=== PATIENT | female | born 1960 | race Caucasian/White ===

== ENCOUNTER 2017-04-16 19:39 | Emergency (ER) | payer OTHER ==
[~2017-04-16] VITALS: Ht 157.5 cm; Wt 86.3 kg
[~2017-04-16 19:39] MED LIST: CLAR10T; ESTR1TAB22; ZOC20
[2017-04-16 19:45] VITALS: BP 179/116; PULSE 70; RESP 16; O2SAT 99
[2017-04-16 20:56] LABS: BASOPHILS % (AUTO) 0.8 % (0-3); EOSINOPHILS % (AUTO) 4.3 % (0-5); MONOCYTES % (AUTO) 9.5 % (4-12); Mean Corpuscular Hemoglobin 29.6 pg (27.0-35.0); Mean Corpuscular Volume 88.1 fL (81-100); NEUTROPHILS % (AUTO) 48.7 % (40-74); Platelet Count 269 bil/L (150-400)
[2017-04-16 21:08] VITALS: BP 141/91; PULSE 66; RESP 20; O2SAT 99
[2017-04-16 21:18] LABS: TROPONIN T 0.01 ug/L (0.0-0.011)
--- NOTE | 2017-04-16 21:21 | ED.REPORT ---
HPI-General Illness Date of Service Apr 16, 2017 ED Provider: Ananda Lema MD Pt is a healthy 56 y/o female presenting to the ED c/o bilateral tingling sensation about the palmar aspect of every finger which has been occurring for many months. She denies any actual numbness, weight loss, any other symptoms. These symptoms seem to occur mostly when she walks. She has had carpal tunnel surgery bilaterally. The patient admits to consuming about 1-2 shots of vodka each day after work and she has not ceased this recently. Her mother and grandmother both have diabetes but she has no history of any chronic medical problems including diabetes and peripheral neuropathy. One time today her left foot tingled but otherwise these sensations seem to be located to just her fingers. She decided to be seen in the ED today because she has a family history of cardiac disease and she was worried this may be a cardiac problem. Nursing Notes Stated Complaint: TINGLING IN BOTH HANDS/SENT FROM URGENT CARE Chief Complaint: General Complaint Nursing Notes Reviewed: Yes Allergies: Coded Allergies: No Known Allergies (Unverified , 04/16/17) Miscellaneous Medications Estradiol/Noreth-Expunged Drug, Do Not Renew! (Activella-Expunged Drug, Do Not Renew!!) 1 Tab Tablet Loratadine-Expunged Drug, Do Not Renew! (Loratadine-Expunged Drug, Do Not Renew! ) 10 Mg Tablet Simvastatin-Expunged Drug, Choose New Med! (Simvastatin-Expunged Drug, Choose New Med!) 20 Mg Tablet General Time Seen by MD: 21:19 Chief Complaint Other (finger tingling) Hx Obtained From: Patient Arrived By: Walk-in Sudden in Onset?: No Onset Occurred: More than a week ago... (3 months) Symptom Duration: Since onset Severity: Current: No pain currently Severity: Maximum: No pain Recent Healthcare: No recent hospitalization Similar Sx Previous: No Past Medical History Past Medical History Denies Past Surgical History Carpal tunnel bilat Family History Diabetes Cardiac disease Smoking History Unknown if Ever Smoker Social History Alcohol Use: 1-3 per day Ambulatory Status Independent Review of Systems +tingling sensation Full Review of Systems Constitutional: Denies: Chills, Fever Respiratory: Denies: Non-productive cough, Shortness of breath Cardiovascular: Denies: Chest pain, Dyspnea on exertion GI: Denies: Abdominal pain, Nausea, Vomiting Musculoskeletal: Denies: Back pain, Neck pain Neurologic: Denies: Abnormal movement, Bladder dysfunction, Bowel dysfunction, Change LOC, Confusion, Dizziness, Focal weakness, Headache, Lightheaded, Numbness, Problem walking, Seizure, Shaking, Slurred speech, Spinning sensation , Syncope, Unable to speak, Vision change, Weakness Physical Exam Vital Signs Vital Signs Date Time Temp Pulse Resp B/P Pulse Ox O2 Delivery O2 Flow Rate FiO2 04/16/17 22:08 64 16 163/94 97 Room Air 04/16/17 21:51 66 16 144/94 97 Room Air 04/16/17 21:08 66 20 141/91 99 Room Air 04/16/17 19:45 36.5 70 16 179/116 99 Initial VS: Reviewed, Vital signs abnormal Head / Eyes: Atraumatic, Normocephalic, PERRL ENT: Mucous membranes moist, Conjunctiva normal, No scleral icterus Neck: Supple, Full range of motion Respiratory: Breath sounds normal, Clear to auscultation, No respiratory distress Cardiovascular: Regular rate & rhythm, Heart sounds normal, Intact distal pulses Skin: Warm, Dry, No cyanosis Psychiatric: Mood/affect normal, Behavior normal, Normal thought content General/Constitutional: Awake, Alert, No acute distress, Well appearing, Cooperative, Not toxic appearing Behavior: Positive: Anxious Appearance / Presentation: Positive: Obese Abdomen: Atraumatic, Soft, Non-tender, No guarding, No rebound, No distention, No palpable mass Organomegaly / Mass / Hernia: Negative: Hepatomegaly Upper Extremities Upper Extremity / MS: Atraumatic, Inspection NL, Full range of motion, No swelling, Non-tender, No snuffbox tenderness, No erythema, No deformity, Neurologic intact, Vascular intact, No ligamentous injury, Tendon function NL, No compartment syndrome, No circumferential injury, No clubbing/cyanosis, No edema Wrist / Hand: Atraumatic, Inspection NL, Full range of motion, No swelling, No erythema, Non-tender, No snuffbox tenderness, No deformity, Neurologic intact, Vascular intact, No ligamentous injury, Tendon function NL, No compartment syndrome, No circumferential injury, No clubbing/cyanosis, No edema Well healed carpal tunnel scars bilaterally Interpretation & Diagnostics Lab Results Interpretation Result Diagram: 04/16/17204404/16/172044 Test 04/16/17 20:45 White Blood Count 7.4th/mm3 (3.8-10.1) Red Blood Count 4.97mil/mm3 (3.90-5.20) Hemoglobin 14.7g/dL (12.0-15.6) Hematocrit 43.8% (35.0-46.0) Mean Corpuscular Volume 88.1fL (81-100) Mean Corpuscular Hemoglobin 29.6pg (27.0-35.0) Mean Corpuscular Hemoglobin Concent 33.6% (32.0-37.0) Red Cell Distribution Width 13.8% (12.3-15.4) Platelet Count 269bil/L (150-400) Neutrophils (%) (Auto) 48.7% (40-74) Lymphocytes (%) (Auto) 36.4% (14-46) Monocytes (%) (Auto) 9.5% (4-12) Eosinophils (%) (Auto) 4.3% (0-5) Basophils (%) (Auto) 0.8% (0-3) Sodium Level 139mEq/L (134-144) Potassium Level 4.2mEq/L (3.5-5.2) Chloride Level 102mEq/L (97-108) Carbon Dioxide Level 23mmol/L (18-29) Blood Urea Nitrogen 13mg/dL (6-24) Creatinine 0.77mg/dL (0.57-1.00) Estimat Glomerular Filtration Rate 111mL/min (>59) Glucose Level 95mg/dL (60-99) Calcium Level 9.7mg/dL (8.5-10.1) Magnesium Level 2.3mg/dL (1.6-2.6) Total Bilirubin 0.3mg/dL (0.0-1.2) Aspartate Amino Transf (AST/SGOT) 23U/L (0-50) Alanine Aminotransferase (ALT/SGPT) 33U/L (0-32) Alkaline Phosphatase 73U/L (25-150) Troponin T 0.010ug/L (0.0-0.011) Total Protein 7.8g/dL (6.4-8.4) Albumin 4.5g/dL (3.4-5.0) Hold Carballo Top Tube Received (Received) Lab Results Interpretation: Mild transaminitis ECG Interpretation Time: 21:30 Interpreted by: ED physician Normal ECG Interpretation: Normal ECG w/ rate of... (63), Normal rate, Normal sinus rhythm, No acute ischemic changes, Normal QRS, Normal axis, Normal intervals, Adequate tracing Re-Eval/Medical Decision Med Decision/Clinical Course 56-year-old female who presents with several weeks of bilateral intermittent tingling of the hands and occasionally of the foot. She drinks vodka on a daily basis for the past 4 years. She has no sobriety during that timeframe. She is found to have mild elevation of one of her liver enzymes without any palpable liver tenderness or enlargement of the labs are normal. EKG is normal. Troponin is negative. I do not suspect stroke or cardiac disease. She does have a history of bilateral carpal tunnel surgeries but this does not appear to be due to recurrent carpal tunnel syndrome. She feels she will have no trouble stopping drinking and expresses intent to do so. She will follow up with her primary doctor if she experiences withdrawal symptoms or has trouble stopping. Time of Eval: 21:55 Re-Evaluation/Progress Note: Pt rechecked. Discussed normal lab results. Discussed alcohol overuse and possibility of withdrawal. F/U instructions and RTER warnings given. All questions addressed. Counseled Regarding: Diagnosis, Lab results, Need for follow-up, When/why to return to ED Discharge & Departure Primary Impression: Peripheral neuropathy Peripheral neuropathy type: idiopathic neuropathy, unspecified Qualified Code : G60.9 - Hereditary and idiopathic neuropathy, unspecified Additional Impression: Alcohol abuse Disposition: Home Discharge Condition All VS Reviewed: Yes Condition: Stable Patient Instructions: Alcohol Dependence (ED), Peripheral Neuropathy (ED) Additional Instructions: You have peripheral neuropathy, likely caused by daily alcohol intake. I do not suspect a problem with your heart. You need to stop drinking. If you have problems with withdrawal or are unable to stop, talk to your regular doctor about assistance. Call me at [phone] between the hours of 9 PM and 6 AM for the next couple nights if you have any questions or concerns. Referrals: Lisa Gordon MD (PCP) Scribe Attestation Portions of this note were transcribed by Miguel Ángel Shipman. I, Dr. Lema personally performed the history, physical exam and medical decision-making; I reviewed and confirmed the accuracy of the information in the transcribed note. Signed by Kyle Guzmán, 04/16/172199 copies to: Lisa Gordon MD, Ananda Castellanos MD Apr 16, 2017 21:20 MIGUEL ÁNGEL SIHPMAN Apr 16, 2017 21:25
[2017-04-16 21:29] LABS: Magnesium 2.3 mg/dL (1.6-2.6)
[2017-04-16 21:51] VITALS: BP 144/94; PULSE 66; RESP 16; O2SAT 97
[2017-04-16 22:08] VITALS: BP 163/94; PULSE 64; RESP 16; O2SAT 97
== END 2017-04-16 22:09 | disposition home or self-care (01) ==
LOC: SED 20:26
DX: G60.9 Hereditary and idiopathic neuropathy, unspecified (principal); F10.20 Alcohol dependence, uncomplicated; F41.9 Anxiety disorder, unspecified; I51.9 Heart disease, unspecified; R74.0 Nonspecific elevation of levels of transaminase and lactic acid dehydrogenase [LDH]